=== PATIENT | female | born 1950 | race Caucasian/White ===

== ENCOUNTER 2017-01-24 09:48 | Emergency (ER) | payer MEDICARE ==
[2017-01-24 10:03] VITALS: BP 157/78
--- NOTE | 2017-01-24 10:25 | UC ---
Shortness of Breath HPI - HPI Summary HPI Summary: The patient comes in today for: 1. Shortness of breath: Onset: 2 days ago. Palliative/provocative: Nothing makes it better or worse. Quality: Shortness of breath. Region: Lungs. Severity: Chest pain: NOne. Time: Constant. 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 She has also had open heart surgery to remove some of the "muscle between the right and left side of the heart." Treatment: She has used Xopenex in the past and a nebulizer at home. Normally, she states that she does not take anything for her lungs despite having COPD. Fevers: None. Cough: None. Wheezing: None. Chest tightness: Present. She has no radiation of the chest tightness. NO nausea. Walking around her apartment makes the tightness worse. She states that she did not feel good this morning. * - History of Current Complaint Chief Complaint: UCRespiratory Stated Complaint: DIFFICULTY BREATHING Time Seen by Provider: 01/24/17 10:19 Hx Obtained From: Patient - Allergy/Home Medications Allergies/Adverse Reactions: Allergies Allergy/AdvReac Type Severity Reaction Status Date / Time SHALOM Inhibitors Allergy Intermediate Palpitation Verified 01/24/17 09:53 s Albuterol Allergy Intermediate Altered Verified 01/24/17 09:53 Mental Status Carbapenems Allergy Intermediate Unknown Verified 01/24/17 09:53 Reaction Details Cephalosporins Allergy Intermediate Hives Verified 01/24/17 09:53 Clarithromycin Allergy Intermediate Rash Verified 01/24/17 09:53 Penicillins Allergy Intermediate Rash Verified 01/24/17 09:53 Pravastatin Allergy Intermediate Palpitation Verified 01/24/17 09:53 s Prednisone Allergy Intermediate Altered Verified 01/24/17 09:53 Mental Status Sulfa Antibiotics Allergy Intermediate Hives Verified 01/24/17 09:53 Codeine Allergy Unknown See Comment Verified 01/24/17 09:53 Ciprofloxacin [From Cipro] Allergy Unknown Verified 01/24/17 09:53 Reaction Details Tramadol Allergy Unknown Verified 01/24/17 09:53 Reaction Details azithromycin Allergy Intermediate Hives Uncoded 01/24/17 09:53 betalactams Allergy Intermediate Hives Uncoded 01/24/17 09:53 macrolide antibiotics Allergy Intermediate Hives Uncoded 01/24/17 09:53 latex Allergy Mild Itching Uncoded 01/24/17 09:53 Home Medications: Home Medications Ustekinumab (IV) [Stelara] 90 mg INJ 01/24/17 [History] PMH/Surg Hx/FS Hx/Imm Hx Previously Healthy: No - Insomnia, Gout, edema, psoriasis Endocrine History Of: Reports: Thyroid Disease Denies: Diabetes, Hyperthyroidism, Hypothyroidism, Dyslipidemia Cardiovascular History Of: Reports: Cardiac Disorders - hx of pacemaker ( Open heart surgery "to remove muscle in heart.", Hypertension, Pacemaker/ICD Denies: Myocardial Infarction, Congestive Heart Failure, Atrial Fibrillation , Deep Vein Thrombosis, Bleeding Disorders Respiratory History Of: Reports: COPD, Asthma Denies: Bronchitis, Pneumonia, Pulmonary Embolism GI/ History Of: Reports: Gastroesophageal Reflux, Kidney Stones Denies: Ulcer, Gastrointestinal Bleed, Gall Bladder Disease, Diverticulitis, Renal Disease, Urosepsis Neurological History Of: Denies: TIA, CVA, Dementia, Seizures, Migraine Psychological History Of: Reports: Anxiety, Bipolar Disorder Denies: Depression, Schizophrenia, Post Traumatic Stress Disorder Cancer History Of: Denies: Lung Cancer, Colorectal Cancer, Breast Cancer, Prostate Cancer, Cervical Cancer Other History Of: Negative For: HIV, Hepatitis B, Hepatitis C, Anticoagulant Therapy - Surgical History Surgical History: Yes Surgery Procedure, Year, and Place: tonsillectomy [facility] 2006. total hysterectomy pacer insertion 2006. . gallbladder. kidney stones-h/o having a shunt. [facility]RA & 2 catheterizations. lung bx - Family History Known Family History: Positive: Cardiac Disease, Hypertension - Social History Occupation: Unemployed Alcohol Use: None Substance Use Type: None Smoking Status (MU): Never Smoked Tobacco - Immunization History Most Recent Influenza Vaccination: None Most Recent Tetanus Shot: 08/27/10 Review of Systems Constitutional: Negative Skin: Negative Eyes: Negative ENT: Negative Respiratory: Shortness Of Breath Cardiovascular: Chest Pain - Tightness Gastrointestinal: Negative Genitourinary: Negative All Other Systems Reviewed And Are Negative: Yes Physical Exam Triage Information Reviewed: Yes Appearance: Well-Appearing, No Pain Distress, Well-Nourished, Obese Vital Signs: Initial Vital Signs Temp 96.7 F 01/24/17 09:55 Pulse 75 01/24/17 09:55 Resp 18 01/24/17 09:55 BP 157/78 01/24/17 09:55 Pulse Ox 96 01/24/17 09:55 Vital Signs Reviewed: Yes Eyes: Positive: Conjunctiva Clear. Negative: Discharge ENT: Positive: Hearing grossly normal. Negative: Pharyngeal erythema, Nasal congestion, Nasal drainage, TM bulging, TM dull, TM red, Tonsillar swelling, Tonsillar exudate Dental: Negative: Gross Decay/Caries @, Dental Fracture @ Neck: Positive: Supple, Nontender, No Lymphadenopathy. Negative: Nuchal Rigidity Respiratory: Positive: Chest non-tender, Lungs clear, No respiratory distress, No accessory muscle use. Negative: Crackles, Wheezing Cardiovascular: Positive: RRR, No Murmur Abdomen Description: Positive: Nontender, No Organomegaly, Soft. Negative: Distended, Guarding Musculoskeletal: Positive: Strength Intact, ROM Intact Neurological: Positive: Alert, Muscle Tone Normal Psychological: Positive: Age Appropriate Behavior, Consolable Skin: Negative: rashes, breakdown Diagnostics - Laboratory Diagnostic Studies Completed/Ordered: EKG: Rate: 64. Rhythm: sinus. Ectopy: None. Acute changes: None. - Radiology No standard instances Xray Interpretation: No Acute Changes Radiology Interpretation Completed By: Radiologist Shortness of Breath Dx - Differential Dx/Diagnosis Provider Diagnoses: Chest tightness. Dyspnea. High blood pressure. Discharge - Discharge Plan Condition: Stable Disposition: HOME Patient Education Materials: Dyspnea (ED) Referrals: Joselyn Lovell MD [Primary Care Provider] - As Soon As Possible (If you are not going to the ER, please see your primary care provider as soon as you can. If you get worse, please reconsidering going to the ER.)
--- NOTE | 2017-01-24 11:33 | RAD ---
INDICATION: Shortness of breath and chest tightness COMPARISON: Most recent comparison chest x-rays dated October 29, 2016 TECHNIQUE: PA and lateral views of the chest were obtained. FINDINGS: Stable postoperative findings include a single lead left upper chest cardiac pacemaker and sternotomy wires overlying the midline chest. There is persistent cardiomegaly with stable "fullness" of the bilateral jewel as well as mild calcification overlying the arch of the aorta. The lungs are grossly clear. There is no evidence of large pleural effusion. Visualized bones are normal for the patient's age. There is no radiographic evidence of free air beneath the diaphragm IMPRESSION: STABLE CARDIOMEGALY AND POSTOPERATIVE CHANGES FROM THE MOST RECENT OCTOBER 29, 2016 CHEST X-RAY.
== END 2017-01-24 11:46 | disposition left against medical advice (07) ==
LOC: UCCORT 09:48
DX: R07.89 Other chest pain (principal); R06.00 Dyspnea, unspecified; I10 Essential (primary) hypertension; Z88.1 Allergy status to other antibiotic agents; Z88.5 Allergy status to narcotic agent; Z88.0 Allergy status to penicillin; Z88.2 Allergy status to sulfonamides; Z88.8 Allergy status to other drugs, medicaments and biological substances; Z95.0 Presence of cardiac pacemaker; Z90.49 Acquired absence of other specified parts of digestive tract
CPT/HCPCS: 71020; 93005; 99212; G0463

== ENCOUNTER 2018-04-18 11:04 | Emergency (ER) | payer MEDICARE, OTHER ==
[2018-04-18 11:53] VITALS: BP 170/93
--- NOTE | 2018-04-18 12:04 | UC ---
Ear Complaint HPI - HPI Summary HPI Summary: left ear pain with a stuffy senation x 1 day. Pain around the external ear as well as internal ear, and has pain with chewing - History of Current Complaint Chief Complaint: UCEar Stated Complaint: EAR PAIN Time Seen by Provider: 04/18/18 11:50 Hx Obtained From: Patient Onset/Duration: Gradual Onset, Lasting Days - 1 Severity Initially: Moderate Severity Currently: Moderate Pain Intensity: 9 Alleviating Factors: OTC Meds - taking acetaminophen every few hours without relief. Associated Signs/Symptoms: Positive: Hearing Loss - no hearing loss, but the ear feels 'stuffy' - Allergies/Home Medications Allergies/Adverse Reactions: Allergies Allergy/AdvReac Type Severity Reaction Status Date / Time SHALOM Inhibitors Allergy Palpitation Verified 04/18/18 11:57 s albuterol Allergy Altered Verified 04/18/18 11:57 Mental Status azithromycin [From Zithromax] Allergy Hives Verified 04/18/18 11:57 Carbapenems Allergy Unknown Verified 04/18/18 11:57 Reaction Details cephalexin Allergy Hives Verified 04/18/18 11:57 ciprofloxacin [From Cipro] Allergy Unknown Verified 04/18/18 11:57 Reaction Details clarithromycin [From Biaxin] Allergy Rash Verified 04/18/18 11:57 codeine Allergy Unknown Verified 04/18/18 11:57 Reaction Details latex Allergy Itching Verified 04/18/18 11:57 Penicillins Allergy Rash Verified 04/18/18 11:57 pravastatin Allergy Palpitation Verified 04/18/18 11:57 s prednisone Allergy Altered Verified 04/18/18 11:57 Mental Status Sulfa (Sulfonamide Allergy Hives Verified 04/18/18 11:57 Antibiotics) tramadol Allergy Unknown Verified 04/18/18 11:57 Reaction Details azithromycin Allergy Intermediate Hives Uncoded 04/18/18 11:57 betalactams Allergy Intermediate Hives Uncoded 04/18/18 11:57 macrolide antibiotics Allergy Intermediate Hives Uncoded 04/18/18 11:57 latex Allergy Mild Itching Uncoded 04/18/18 11:57 Home Medications: Home Medications Senna TAB* [Senokot TAB*] 1 tab PO BID PRN 04/18/18 [History Confirmed 04/18/18] PMH/Surg Hx/FS Hx/Imm Hx - Additional Past Medical History Additional PMH: psoriasis, takes Stelara Previously Healthy: No Cardiovascular History: Hypertension, Pacemaker/ICD Psychological History: Bipolar Disorder Other History Of: Negative For: HIV, Hepatitis B, Hepatitis C, Anticoagulant Therapy - Surgical History Surgical History: Yes Surgery Procedure, Year, and Place: tonsillectomy [facility] 2006. total hysterectomy pacer insertion 2006. . gallbladder. kidney stones-h/o having a shunt. [facility]RA & 2 catheterizations. lung bx - Family History Known Family History: Positive: Cardiac Disease, Hypertension - Social History Occupation: Retired Lives: Alone Alcohol Use: None Substance Use Type: None Smoking Status (MU): Never Smoked Tobacco - Immunization History Most Recent Influenza Vaccination: None Most Recent Tetanus Shot: 08/27/10 Review of Systems Constitutional: Fatigue Skin: Negative Eyes: Negative ENT: Ear Ache Respiratory: Shortness Of Breath - just did a sleep study, anticipates needs CPAP Cardiovascular: Other - high BP today without chest pain or dyspnea. Gastrointestinal: Negative Genitourinary: Negative Motor: Negative Neurovascular: Negative Musculoskeletal: Negative Neurological: Negative Psychological: Negative Is Patient Immunocompromised?: No All Other Systems Reviewed And Are Negative: Yes Physical Exam Triage Information Reviewed: Yes Appearance: Ill-Appearing - looks chronically unwell, Obese Vital Signs: Initial Vital Signs Temp 98.3 F 04/18/18 11:43 Pulse 64 04/18/18 11:43 Resp 18 04/18/18 11:43 BP 170/93 04/18/18 11:43 Pulse Ox 93 04/18/18 11:43 Eyes: Positive: Conjunctiva Clear ENT: Positive: Pharynx normal, TMs normal, Other - left ear canal with mild erythema and swelling. TM mildly reddened, no bulging. No adenopathy, no evidence of cellulitis. Dental Exam: Normal, Other - absent upper and lower molars, normal gums. Dental: Negative: Gross Decay/Caries @, Dental Fracture @, Abscess @ Neck: Positive: Supple, Nontender, No Lymphadenopathy Respiratory: Positive: Lungs clear Cardiovascular: Positive: RRR, Murmur:Sys:Grade _?_/ - 1 Ear Complaint Course/Dx - Course Course Of Treatment: drops to left ear for suspected OE - Differential Dx/Diagnosis Provider Diagnoses: left otitis external Discharge - Sign-Out/Discharge Documenting (check all that apply): Discharge/Admit/Transfer - Discharge Plan Condition: Stable Disposition: HOME Prescriptions: Neomyc/Polym/HC 1% OTIC SUSP* [Cortisporin Otic Susp 1%*] 4 drop LEFT EAR QID # 1 btl Patient Education Materials: Otitis Externa (DC) Referrals: Joselyn Lovell MD [Primary Care Provider] - Additional Instructions: Put drops in the left ear every 2 hours today, then 4 times daily for 5 days. Continue acetaminophen for use of pain. Follow up if pain progresses or continues. - Billing Disposition and Condition Condition: STABLE Disposition: Home
== END 2018-04-18 12:21 | disposition home or self-care (01) ==
LOC: UCCORT 11:04
DX: H60.92 Unspecified otitis externa, left ear (principal); I10 Essential (primary) hypertension; Z88.5 Allergy status to narcotic agent; Z88.1 Allergy status to other antibiotic agents; Z91.040 Latex allergy status; Z95.810 Presence of automatic (implantable) cardiac defibrillator
CPT/HCPCS: 99212; G0463